=== PATIENT | male | born 1960 | race Caucasian/White ===

== ENCOUNTER 2017-10-05 08:21 | Emergency (ER) | payer BC ==
[~2017-10-05] VITALS: Ht 182.9 cm; Wt 103.0 kg
[2017-10-05 08:39] VITALS: BP 117/77; PULSE 68; RESP 20; TEMP 98.6; O2SAT 96
[2017-10-05] MEDS ORDERED: VANC125C3 PO (08:54)
[2017-10-05] MEDS ORDERED: LACTCAP8 PO (08:54)
[2017-10-05] MEDS ORDERED: ATOR10TA15 PO (08:54)
[2017-10-05 09:29] LABS: AUTOMATED NEUTROPHIL # 6.3 TH/MM3 (1.8-7.7); BASOPHIL # 0.1 TH/MM3 (0-0.2); BASOPHIL % 0.6 % (0.0-2.0); EOSINOPHIL # 0.2 TH/MM3 (0-0.4); EOSINOPHIL % 2.5 % (0.0-4.0); HEMATOCRIT 45.1 % (39.0-51.0); HEMOGLOBIN 15.9 GM/DL (13.0-17.0); LYMPH % 17.1 % (9.0-44.0); LYMPHOCYTE # 1.6 TH/MM3 (1.0-4.8); MEAN CELL VOLUME 91.5 FL (80.0-100.0); MEAN CORPUSCULAR HEMOGLOBIN 32.3 PG (27.0-34.0); MEAN CORPUSCULAR HGB CONC 35.3 % (32.0-36.0); MEAN PLATELET VOLUME 6.9 FL (7.0-11.0); MONO % 11.4 % (0.0-8.0); NEUT % 68.4 % (16.0-70.0); PLATELET COUNT 256 TH/MM3 (150-450); RED BLOOD COUNT 4.92 MIL/MM3 (4.50-5.90); RED CELL DISTRIBUTION WIDTH 12.5 % (11.6-17.2); WHITE BLOOD COUNT 9.2 TH/MM3 (4.0-11.0)
[2017-10-05 09:41] LABS: CALCIUM 8.6 MG/DL (8.5-10.1); CHLORIDE 107 MEQ/L (98-107); SODIUM (NA) 140 MEQ/L (136-145)
--- NOTE | 2017-10-05 10:19 | PD ---
HPI Chief Complaint: GI Complaint Time Seen by Provider: 08:59 Travel History International Travel<30 days: No Contact w/Intl Traveler<30days: No Traveled to known affect area: No History of Present Illness HPI 57 y/o male presents with pain near his rectum with a lump that he noticed over the past couple of days. He states he recently was on antibiotics and developed C. difficile and is currently on vancomycin. He states he was on the antibiotics for his teeth. He states he is here from [place]. He states he is afraid he has an abscess. He denies prior history of that. He denies any other concurrent complaints. Quality is lump. Severity is 1. Location is rectum. He denies specific modifying factors. PFSH Past Medical History High Cholesterol: Yes Past Surgical History Abdominal Surgery: Yes (hernia) Social History Alcohol Use: Yes (occ) Tobacco Use: No Substance Use: No Allergies-Medications (Allergen,Severity, Reaction): Coded Allergies: No Known Allergies (Unverified , 10/05/17) Reported Meds & Prescriptions Reported Meds & Active Scripts Active Reported Atorvastatin (Atorvastatin Calcium) 10 Mg Tab Unknown Dose PO HS Vancomycin (Vancomycin HCl) 125 Mg Cap 125 Mg PO QID Probiotic (Lactobacillus Acidophilus) 10 Billion Cell Cap 1 Cap PO TIDAC Review of Systems Except as stated in HPI: all other systems reviewed are Neg Physical Exam Narrative GENERAL: 57-year-old male in no apparent distress SKIN: Focused skin assessment warm/dry. HEAD: Atraumatic. Normocephalic. EYES: Pupils equal and round. No scleral icterus. No injection or drainage. ENT: No nasal bleeding or discharge. Mucous membranes pink and moist. NECK: Trachea midline. No JVD. CARDIOVASCULAR: Regular rate and rhythm. RESPIRATORY: No accessory muscle use. Clear to auscultation. Breath sounds equal bilaterally. GASTROINTESTINAL: Abdomen soft, non-tender, nondistended. MUSCULOSKELETAL: No obvious deformities. No clubbing. No cyanosis. NEUROLOGICAL: Awake and alert. No obvious cranial nerve deficits. Motor grossly within normal limits. Normal speech. PSYCHIATRIC: Appropriate mood and affect; insight and judgment normal. RECTAL EXAM: Performed with airport ramp agent and after permission. No external hemorrhoid or fissure, patient has a small area at approximately 10:00 that feels indurated without overlying erythema Data Data Last Documented VS Vital Signs Date Time Temp Pulse Resp B/P (MAP) Pulse Ox O2 Delivery O2 Flow Rate FiO2 10/05/17 15:42 68 18 121/76 (91) 96 Room Air 10/05/17 08:39 98.6 Orders Orders Urinalysis - C+S If Indicated (10/05/17 08:56) Complete Blood Count With Diff (10/05/17 09:09) Comprehensive Metabolic Panel (10/05/17 09:09) Lipase (10/05/17 09:09) Ct Abd/Pel W Iv Contrast(Rout) (10/05/17 ) Iv Access Insert/Monitor (10/05/17 09:09) Iohexol 350 Inj (Omnipaque 350 Inj) (10/05/17 11:58) Sodium Chlor 0.9% 1000 Ml Inj (Ns 1000 M (10/05/17 13:00) Urinary Catheter Insert/Apply (10/05/17 14:31) Ed Discharge Order (10/05/17 16:07) Labs Laboratory Tests Test 10/05/17 09:15 10/05/17 15:15 White Blood Count 9.2 TH/MM3 Red Blood Count 4.92 MIL/MM3 Hemoglobin 15.9 GM/DL Hematocrit 45.1 % Mean Corpuscular Volume 91.5 FL Mean Corpuscular Hemoglobin 32.3 PG Mean Corpuscular Hemoglobin Concent 35.3 % Red Cell Distribution Width 12.5 % Platelet Count 256 TH/MM3 Mean Platelet Volume 6.9 FL Neutrophils (%) (Auto) 68.4 % Lymphocytes (%) (Auto) 17.1 % Monocytes (%) (Auto) 11.4 % Eosinophils (%) (Auto) 2.5 % Basophils (%) (Auto) 0.6 % Neutrophils # (Auto) 6.3 TH/MM3 Lymphocytes # (Auto) 1.6 TH/MM3 Monocytes # (Auto) 1.0 TH/MM3 Eosinophils # (Auto) 0.2 TH/MM3 Basophils # (Auto) 0.1 TH/MM3 CBC Comment DIFF FINAL Differential Comment Blood Urea Nitrogen 9 MG/DL Creatinine 1.10 MG/DL Random Glucose 89 MG/DL Total Protein 6.8 GM/DL Albumin 3.1 GM/DL Calcium Level 8.6 MG/DL Alkaline Phosphatase 90 U/L Aspartate Amino Transf (AST/SGOT) 20 U/L Alanine Aminotransferase (ALT/SGPT) 32 U/L Total Bilirubin 0.5 MG/DL Sodium Level 140 MEQ/L Potassium Level 3.8 MEQ/L Chloride Level 107 MEQ/L Carbon Dioxide Level 23.8 MEQ/L Anion Gap 9 MEQ/L Estimat Glomerular Filtration Rate 69 ML/MIN Lipase 144 U/L Urine Color YELLOW Urine Turbidity CLEAR Urine pH 6.0 Urine Specific [place] 1.048 Urine Protein NEG mg/dL Urine Glucose (UA) NEG mg/dL Urine Ketones NEG mg/dL Urine Occult Blood NEG Urine Nitrite NEG Urine Bilirubin NEG Urine Urobilinogen LESS THAN 2.0 MG/DL Urine Leukocyte Esterase NEG Urine RBC LESS THAN 1 /hpf Urine WBC LESS THAN 1 /hpf Microscopic Urinalysis Comment CULT NOT INDICATED MDM Medical Decision Making Medical Screen Exam Complete: Yes Emergency Medical Condition: Yes Medical Record Reviewed: Yes (Past history confirmed) Interpretation(s) CBC & BMP Diagram 10/05/17 09:15 Total Protein 6.8, Albumin 3.1 L, Calcium Level 8.6, Alkaline Phosphatase 90, Aspartate Amino Transf (AST/SGOT) 20, Alanine Aminotransferase (ALT/SGPT) 32, Total Bilirubin 0.5 Last 24 hours Impressions Abdomen/Pelvis CT 10/05/17 0000 Signed Impressions: CONCLUSION: 1. Questionable mild wall thickening of the distal sigmoid colon and rectum. H owever, no perienteric inflammation is appreciated. The remainder of the colon is within normal limits. 2. No other acute finding is identified within the abdomen or pelvis. Differential Diagnosis Abscess, mass, colitis Narrative Course Patient has possible perirectal abscess on exam. Will check CT to determine exact diagnosis and extent CT shows no abscess. After discussion with colorectal he will have follow-up with him and use warm compresses and sitz baths. No indication for antibiotics at this time specially with C. difficile history. Awaiting urinalysis After 6 hours and IV fluids patient still unable to urinate. He finally agrees to Nagy catheterization and had 850 mL's of urine output. Will leave Nagy in and have patient follow with urology for acute urinary retention. Patient denies any new complaints and states that they are feeling better. Patient happy with care, all questions answered. Patient knows that follow up is incumbent on them and to return to the emergency room immediately if new or worsening symptoms develop. Patient given strict return precautions, vitals reviewed and are normal, agrees to further workup as an outpatient. Physician Communication Physician Communication dr jimenez states to have patient use warm compresses and to follow in the office Diagnosis Primary Impression: Rectal pain Additional Impressions: Urinary retention Colitis Referrals: Aldo Jimenez MD call for appointment Urologist call for appointment Patient Instructions: Nagy Catheter Placement and Care (DC), General Instructions Additional Instructions: warm compresses and sitz bath to rectal area three times a day, return as needed Med/Other Pt SpecificInfo: Prescription(s) given Disposition: 01 DISCHARGE HOME Condition: Stable Felicia Flores MD October 05, 2017 10:19
[2017-10-05 10:58] LABS: ALBUMIN 3.1 GM/DL (3.4-5.0); ALT (GPT) 32 U/L (12-78); AST (GOT) 20 U/L (15-37); BICARBONATE 23.8 MEQ/L (21.0-32.0); BLOOD UREA NITROGEN 9 MG/DL (7-18); GLOMERULAR FILTRATION RATE 69 ML/MIN (>89); GLUCOSE,RANDOM 89 MG/DL (74-106)
[2017-10-05 11:03] LABS: ALKALINE PHOSPHATASE 90 U/L (45-117); TOTAL BILIRUBIN ADULT 0.5 MG/DL (0.2-1.0); TOTAL PROTEIN 6.8 GM/DL (6.4-8.2)
[2017-10-05] MEDS ORDERED: IOHEXOL 350 MG/ML 10 ML VIAL (for RAD DIAG) IVCONTRAST ONE (11:58)
--- NOTE | 2017-10-05 12:10 | RADRPT ---
EXAM DATE: 10/05/2017 11:57 AM EDT AGE/SEX: 57 years / Male INDICATIONS: Abdominal pain for one month. Diarrhea. Difficulty urinating. Abscess. CLINICAL DATA: This is the patient's initial encounter. Patient reports that signs and symptoms have been present for 1 month and indicates a pain score of 5/10. MEDICAL/SURGICAL HISTORY: Hiatal hernia. None. ORAL CONTRAST: No oral contrast ingested. RADIATION DOSE: 16.12 CTDI (mGy) COMPARISON: No prior [facility] exams available for comparison. TECHNIQUE: Multiple contiguous axial images were obtained through the abdomen and pelvis following b olus infusion of 87 ml Omnipaque 350 (iohexol) nonionic water-soluble contrast as a single exam dos e. No oral contrast ingested. Using automated exposure control and adjustment of the mA and/or kV ac cording to patient size, the radiation dose was kept as low as reasonably achievable to obtain optima l diagnostic quality images. FINDINGS: Lower chest: No acute abnormality is identified. Hepatobiliary: No focal liver lesion is identified. Hepatic vasculature demonstrates no abnormality. No calcified gallstones are present. Kidneys: No hydronephrosis, stone, or mass. Adrenal Glands: Within normal limits. Spleen: Within normal limits. Pancreas: Within normal limits. Vascular: The aorta is nonaneurysmal. There is mild atherosclerotic disease. Bowel/Mesentery: The stomach and small bowel demonstrate no abnormality. Mild sigmoid diverticulosis is present. There is a questionable mild wall thickening of the distal sigmoid colon and rectum. Youssef romeo, no perienteric inflammation is present. There is no free intraperitoneal air or fluid. Appendix and terminal ileum are normal. Abdominal Wall: No hernia is visualized. Retroperitoneum: No lymphadenopathy. Bladder: No wall thickening or mass. Reproductive: Within normal limits. Inguinal: There is a small fat-containing right inguinal hernia. No lymphadenopathy is present. Musculoskeletal: No acute osseous abnormality is identified. There are mild degenerative changes of t he lumbar spine. CONCLUSION: 1. Questionable mild wall thickening of the distal sigmoid colon and rectum. However, no perienteric inflammation is appreciated. The remainder of the colon is within normal limits. 2. No other acute finding is identified within the abdomen or pelvis. Electronically signed by: Edvin Burciaga MD 10/05/2017 12:08 PM EDT
[2017-10-05] MEDS ORDERED: SODIUM CHLOR 0.9% 1000 ML INJ 1,000 ML IV ONE (13:00)
[2017-10-05 15:42] VITALS: BP 121/76; PULSE 68; RESP 18; O2SAT 96
[2017-10-05 16:00] LABS: BILIRUBIN, URINE NEG (NEG); BLOOD, URINE NEG (NEG); GLUCOSE,URINE NEG (NEG); KETONE, URINE NEG (NEG); NITRITE,URINE NEG (NEG); URINE COLOR YELLOW (YELLW/STRAW); URINE LEUKOCYTE ESTERASE NEG (NEG)
[2017-10-07] MEDS ORDERED: TAMS0.4C4 (15:56)
== END 2017-10-05 16:45 | disposition home or self-care (01) ==
LOC: NEPE 08:21
DX: K62.89 Other specified diseases of anus and rectum (principal); R33.9 Retention of urine, unspecified; K52.9 Noninfective gastroenteritis and colitis, unspecified; E78.00 Pure hypercholesterolemia, unspecified
CPT/HCPCS: 51702; 74177; 80053; 81001; 83690; 85025; 96360; 99285; J7030; Q9967

== ENCOUNTER → 2017-10-07 | Day surgery (SDC) | payer BC ==
[~2017-10-07] VITALS: Ht 182.9 cm; Wt 102.5 kg
[~2017-10-07] MED LIST: *morphine SULFATE 10 MG/ML PERIprocedure ONLY ONE; ATOR10TA15 PO; BACITRACIN TOP OINT 15 GM TUBE ONE; BUPIVACAINE/EPINEPHRINE 0.5% PF 10 ML VIAL ONE; CHLORHEXIDINE GLUCONATE 2 % 1 PACK (2 CLOTHS) TOPICAL PRN; DO NOT ADM ANY ANTICOAGULANT DRUGS PRN; LACTATED RINGER'S 1000 ML IV PRN; LACTCAP8 PO; LIDOCAINE 1%/EPINEPHrine 1:100,000 SOLN 30 ML VIAL ONE; LIDOCAINE HCL 1% PF 5 ML SYRINGE OTHER ONE; METOPROLOL TARTRATE 25 MG TAB PO PRN; MIDAZOLAM HCL 2 MG/2 ML VIAL ONE; MORPHINE SULFATE 4 MG/ML INJ IV PUSH PRN; ONDANSETRON HCL 4 MG/2 ML VIAL IV ONE; POVIDONE IODINE 5% (ANTISEPSIS KIT) 4 APPLICATIONS EACH NARE PRN; PROPOFOL 200 MG/20 ML AMP IV ONE; SODIUM CHLOR 0.9% 1000 ML INJ 1,000 ML IV SCH; SODIUM CHLORID 0.9% 500 ML IV PRN; TAMS0.4C4; VANC125C3 PO; ceFAZolin INJ 1,000 MG VIAL ONE; metroNIDAZOLE 500 MG INJ 100 ML IV ONE; oxyCODONE/ACETAMINOPHEN 7.5 MG/325 MG TAB PO PRN
--- NOTE | 2017-10-07 16:30 | RADRPT ---
EXAM DATE: 10/07/2017 4:28 PM EDT AGE/SEX: 57 years / Male INDICATIONS: Evaluate for pneumonia, pneumothorax, or communicable disease. Pre op for rectal absces s today. CLINICAL DATA: This is the patient's initial encounter. Patient reports that signs and symptoms have been present for 1 day and indicates a pain score of 0/10. MEDICAL/SURGICAL HISTORY: Hypercholesterolemia. None. COMPARISON: No prior [facility] exams available for comparison. FINDINGS: A single AP view of the chest demonstrates the lungs to be symmetrically aerated without evidence of mass, infiltrate or effusion. The cardiomediastinal contours are unremarkable. Osseous structures a re intact. CONCLUSION: No acute cardiopulmonary disease Electronically signed by: Franklyn Zavala MD 10/07/2017 4:29 PM EDT
[2017-10-07 16:47] LABS: AUTOMATED NEUTROPHIL # 8.5 TH/MM3 (1.8-7.7); BASOPHIL # 0.1 TH/MM3 (0-0.2); BASOPHIL % 0.5 % (0.0-2.0); EOSINOPHIL # 0.1 TH/MM3 (0-0.4); HEMATOCRIT 42.7 % (39.0-51.0); HEMOGLOBIN 14.8 GM/DL (13.0-17.0); LYMPH % 10.9 % (9.0-44.0); LYMPHOCYTE # 1.2 TH/MM3 (1.0-4.8); MEAN CELL VOLUME 90.9 FL (80.0-100.0); MEAN CORPUSCULAR HEMOGLOBIN 31.5 PG (27.0-34.0); MEAN CORPUSCULAR HGB CONC 34.6 % (32.0-36.0); MEAN PLATELET VOLUME 6.7 FL (7.0-11.0); MONO % 8.4 % (0.0-8.0); MONOCYTE # 0.9 TH/MM3 (0-0.9); NEUT % 79.2 % (16.0-70.0); PLATELET COUNT 263 TH/MM3 (150-450); RED CELL DISTRIBUTION WIDTH 12.2 % (11.6-17.2); WHITE BLOOD COUNT 10.8 TH/MM3 (4.0-11.0)
[2017-10-07 16:57] LABS: BICARBONATE 21.8 MEQ/L (21.0-32.0); CALCIUM 8.6 MG/DL (8.5-10.1); CREATININE 0.81 MG/DL (0.60-1.30)
[2017-10-07 19:30] VITALS: BP 128/73; PULSE 89; RESP 20; TEMP 98.4; O2SAT 97
--- NOTE | 2017-10-08 14:52 | EKG ---
Date Performed: 10/07/2017 Time Performed: 15:58:57 PTAGE: 57 years EKG: Sinus rhythm NORMAL ECG NO PREVIOUS TRACING DOCTOR: Guido Manuel Interpretating Date/Time 10/08/2017 14:50:53
--- NOTE | 2017-10-19 07:58 | MP ---
cc: Aldo Jimenez MD DATE OF OPERATION: 10/07/2017 PREOPERATIVE DIAGNOSIS: Large ischiorectal abscess. PROCEDURE PERFORMED: Exam under anesthesia with incision and drainage of large ischiorectal abscess and fistulotomy. POSTOPERATIVE DIAGNOSIS: Large ischiorectal abscess. SURGEON: Aldo Jimenez MD DESCRIPTION OF PROCEDURE: After adequate sedation, the patient was placed in the left lateral decubitus position. His buttocks were taped apart, prepped with Betadine solution and draped in usual sterile fashion. Examination of the anorectal area revealed induration and some redness along the anterior quadrant, extending up to the perineal body. Digital exam revealed some good tone with pus coming out of the anterior midline. A radial incision was made over the anterior midline, releasing a large amount of purulent fluid. A large cavity was present extending up along the anterior rectal wall. Did appear to communicate at the previously noted internal opening. Fistulotomy was then performed. Cavity was further explored digitally. It seemed to extend up both ischiorectal spaces on the right and left sides. These spaces were opened and additional pus released. The cavities were irrigated copiously, extended also up onto the perineal body to the scrotal sac and this area had to be opened for more adequate drainage. Some of the skin was removed from the lateral flaps of the wound to enable better drainage. The wound was then irrigated copiously. Hemostasis achieved. A large Kerlix dressing placed into the ischiorectal spaces and the large anterior cavity softly packed with a Kerlix dressing. Large fluff dressing placed externally. The patient tolerated the procedure quite well and was brought to the recovery room in stable condition. The sponge and needle counts were correct at the end of the procedure. Aldo Jimenez MD [facility]/ , 10:28 PM , 11:15 PM
== END | disposition home or self-care (01) ==
LOC: HSDC 15:20
PROVIDERS: ATTEND Colon & Rectal Surgery
DX: K61.3 Ischiorectal abscess (principal); Z01.810 Encounter for preprocedural cardiovascular examination
CPT/HCPCS: 00902; 46060; 71045; 80048; 85025; 93005; J0690; J2250; J2270; J2405; J3010

== ENCOUNTER 2017-10-09 08:12 | Emergency (ER) | payer BC ==
[~2017-10-09] VITALS: Ht 182.9 cm; Wt 100.0 kg
[~2017-10-09 08:12] MED LIST changes: -*morphine SULFATE 10 MG/ML PERIprocedure ONLY ONE; -BACITRACIN TOP OINT 15 GM TUBE ONE; -BUPIVACAINE/EPINEPHRINE 0.5% PF 10 ML VIAL ONE; -CHLORHEXIDINE GLUCONATE 2 % 1 PACK (2 CLOTHS) TOPICAL PRN; -DO NOT ADM ANY ANTICOAGULANT DRUGS PRN; -LACTATED RINGER'S 1000 ML IV PRN; -LIDOCAINE 1%/EPINEPHrine 1:100,000 SOLN 30 ML VIAL ONE; -LIDOCAINE HCL 1% PF 5 ML SYRINGE OTHER ONE; -METOPROLOL TARTRATE 25 MG TAB PO PRN; -MIDAZOLAM HCL 2 MG/2 ML VIAL ONE; -MORPHINE SULFATE 4 MG/ML INJ IV PUSH PRN; -ONDANSETRON HCL 4 MG/2 ML VIAL IV ONE; -POVIDONE IODINE 5% (ANTISEPSIS KIT) 4 APPLICATIONS EACH NARE PRN; -PROPOFOL 200 MG/20 ML AMP IV ONE; -SODIUM CHLOR 0.9% 1000 ML INJ 1,000 ML IV SCH; -SODIUM CHLORID 0.9% 500 ML IV PRN; -ceFAZolin INJ 1,000 MG VIAL ONE; -metroNIDAZOLE 500 MG INJ 100 ML IV ONE; -oxyCODONE/ACETAMINOPHEN 7.5 MG/325 MG TAB PO PRN
[2017-10-09 08:15] VITALS: BP 127/64; PULSE 95; RESP 16; TEMP 98.3; O2SAT 95
[2017-10-09] MEDS ORDERED: MORPHINE SULFATE 4 MG/ML INJ IV PUSH ONE (09:00)
[2017-10-09] MEDS ORDERED: MIDAZOLAM HCL 2 MG/2 ML VIAL IV PUSH ONE (09:00)
[2017-10-09 09:15] VITALS: BP 142/75; PULSE 58; RESP 18; O2SAT 98
[2017-10-09 09:30] VITALS: BP 112/72; PULSE 55; RESP 18; O2SAT 95
--- NOTE | 2017-10-09 09:46 | PD ---
HPI Chief Complaint: GI Complaint Time Seen by Provider: 08:49 Travel History International Travel<30 days: No Contact w/Intl Traveler<30days: No Traveled to known affect area: No History of Present Illness HPI 57yo M was sent in by Dr. Jimenez for bedside irrigation of rectal abscess. Pt had drainage of rectal abscess by Dr. Jimenez and he wants to do another wash out at bedside. Dr. Jimenez is requesting morphine and versed for this procedure. Pt denies any fever, chest pain, sob, n/v, abdominal pain, focal weakness or numbness. PFSH Past Medical History Cancer: No Cardiovascular Problems: No High Cholesterol: Yes Diabetes: No Endocrine: No Gastrointestinal Disorders: Yes (active c-diff 09-24) Genitourinary: Yes (Nagy cath 2 10-05-17) Hepatitis: No Hiatal Hernia: No Immune Disorder: No Musculoskeletal: No Neurologic: No Psychiatric: No Reproductive: No Respiratory: No Thyroid Disease: No Tetanus Vaccination: > 5 Years Influenza Vaccination: Yes Past Surgical History Abdominal Surgery: Yes (MESH HERNIA REPAIR) AICD: No Cardiac Surgery: No Ear Surgery: No Endocrine Surgery: No Eye Surgery: No Genitourinary Surgery: No Gynecologic Surgery: No Joint Replacement: No Oral Surgery: Yes (wisdom) Pacemaker: No Thoracic Surgery: No Tonsillectomy: Yes Other Surgery: Yes (RECTAL ABCESS DRAINED) Social History Alcohol Use: Yes (occ) Tobacco Use: No Substance Use: No Allergies-Medications (Allergen,Severity, Reaction): Coded Allergies: No Known Allergies (Unverified , 10/05/17) Reported Meds & Prescriptions Reported Meds & Active Scripts Active Reported Tamsulosin (Tamsulosin HCl) 0.4 Mg Cap 0.4 Mg HS Atorvastatin (Atorvastatin Calcium) 10 Mg Tab Unknown Dose PO HS Vancomycin (Vancomycin HCl) 125 Mg Cap 125 Mg PO QID Probiotic (Lactobacillus Acidophilus) 10 Billion Cell Cap 1 Cap PO TIDAC Review of Systems Except as stated in HPI: all other systems reviewed are Neg Physical Exam Narrative GENERAL: 57yo M SKIN: Focused skin assessment warm/dry. HEAD: Atraumatic. Normocephalic. EYES: Pupils equal and round. No scleral icterus. No injection or drainage. ENT: No nasal bleeding or discharge. Mucous membranes pink and moist. NECK: Trachea midline. No JVD. CARDIOVASCULAR: Regular rate and rhythm. No murmur appreciated. RESPIRATORY: No accessory muscle use. Clear to auscultation. Breath sounds equal bilaterally. GASTROINTESTINAL: Abdomen soft, non-tender, nondistended. RECTAL: +Incision in right perirectal region. MUSCULOSKELETAL: No obvious deformities. No clubbing. No cyanosis. No edema. NEUROLOGICAL: Awake and alert. No obvious cranial nerve deficits. Motor grossly within normal limits. Normal speech. PSYCHIATRIC: Appropriate mood and affect; insight and judgment normal. Data Data Last Documented VS Vital Signs Date Time Temp Pulse Resp B/P (MAP) Pulse Ox O2 Delivery O2 Flow Rate FiO2 10/09/17 10:44 10/09/17 09:30 55 18 95 Nasal Cannula 2.00 10/09/17 08:15 98.3 Orders Orders Midazolam Inj (Versed Inj) (10/09/17 09:00) Morphine Inj (Morphine Inj) (10/09/17 09:00) Ed Discharge Order (10/09/17 10:40) MDM Medical Decision Making Medical Screen Exam Complete: Yes Emergency Medical Condition: Yes Differential Diagnosis Bedside irrigation of right perirectal abscess Narrative Course 57yo M was sent in by Dr. Jimenez for bedside irrigation of right perirectal abscess. Pt was given morphine and 5mg of versed and had continuous cardiac monitoring throughout the procedure and after. Pt tolerated procedure and is awake and alert and back to baseline prior to discharge. Pt already has pain medication by Dr. Jimenez. No prescription needed from the ED. Procedures Procedure Narrative After the risks and benefits were discussed the following procedure was performed: MODERATE SEDATION: The patient was placed on a cardiac monitor technician and pulse oximetry. An ambu bag and suction was immediately available at bedside. The patient was monitored by the nurse. Oxygen saturation , heart rate and blood pressure were monitored. Procedural sedation was achieved using versed 5mg IV . The patient was observed until awake and alert. Procedural Sedation time in attendance was 20 minutes. Diagnosis Primary Impression: Perirectal abscess Patient Instructions: General Instructions Departure Forms: Tests/Procedures Additional Instructions: Please follow up with Dr. Jimenez as outpatient. Return to the ED if symptoms worsen. Med/Other Pt SpecificInfo: No Change to Meds Disposition: 01 DISCHARGE HOME Condition: Stable Tigist Morris Oct 09, 2017 09:46
--- NOTE | 2017-10-10 15:12 | MB ---
cc: Aldo Jimenez MD DATE: 10/09/2017 The patient was seen in the emergency room. HISTORY OF PRESENT ILLNESS: Mr. Henning is a very pleasant 57-year-old male who had a large ischiorectal abscess drained in the operating room last evening. Due to the size of the wound and lack of available nursing help at home, the patient was brought to the emergency room for removal of his packing and to teach his how to do the dressing changes. At home, he has been eating well, has a Nagy catheter for urinary retention, draining clear urine. He denied any fever. Not much rectal bleeding. PHYSICAL EXAMINATION: GENERAL: Pleasant male in no acute distress. ABDOMEN: Soft and benign. ANAL: Anal inspection showed the wound to be clean. All the packing was removed and the wound irrigated vigorously with normal saline and repacked with a Kerlix dressing, showing the how to do the dressing changes. IMPRESSION: Large horseshoe ischiorectal abscess. Will continue to have his do the dressing changes while he is in [place]. When he gets home, he will have to seek out a colorectal doctor and continue wound care and vigorous irrigations to allow the wound to heal properly. Any problems prior to his return home, I asked him to call my office for additional evaluation. We will hold off on additional antibiotics only because of his recent Clostridium difficile culture being positive, and continue his oral vancomycin. Aldo Jimenez MD [facility] , 01:39 PM , 03:11 PM
== END 2017-10-09 11:28 | disposition home or self-care (01) ==
LOC: NEPC 08:12
DX: K61.3 Ischiorectal abscess (principal)
CPT/HCPCS: 96374; 99285; J2250; J2270